=== PATIENT | female | born 1980 | race American Indian/Alaskan Native ===

== ENCOUNTER 2017-07-11 10:52 | Inpatient (IN) | payer MEDICAID ==
[2017-07-11] MEDS ORDERED: ADRENALIN ONE (11:13)
[2017-07-11] MEDS ORDERED: BENADRYL ONE (11:14)
[2017-07-11] MEDS ORDERED: PEPCID IV ONE ×2 (11:14→11:16)
[2017-07-11] MEDS ORDERED: ATIVAN ONE (11:16)
[2017-07-11] MEDS ORDERED: ATIVAN IV ONE (11:17)
--- NOTE | 2017-07-11 11:23 | Emergency Department Report ---
HPI - General Chief Complaint: Allergic Reaction Time Seen by Provider: 07/11/17 11:16 - HPI HPI: Room 20 The patient is a 37-year-old female presenting with a chief complaint of facial swelling. The patient states she began developing shaking last night at approximately 19:00. Patient states at approximately 02:00 she noted swelling of her bottom lip and tongue swelling. The patient states she took a Benadryl at that time in an attempt to treat the swelling. The patient has a picture of her face prior to arrival and it was significantly more edematous than it is currently. Patient's swelling has decreased dramatically. The patient states she does not recall any new exposures/foods/medications. Patient states she's had similar episodes in the past with facial swelling the first time occurred after eating burt fish and the second episode occurred after taking a medication for her knee pain that started with the letter "M." patient complains of some shortness of breath and fatigue currently. The patient states she normally drinks approximately 1 pint of alcohol daily and she last consumed 4 days ago Location: Face, see above Duration: [See above] Quality: Swelling Severity: moderate Modifying factors: [see above] Context: [see above] Mode of transportation: [not driving] ED Past Medical Hx - Past Medical History Previous Medical History?: No - Surgical History Additional Surgical History: C/S - Family History Family history: no significant - Social History Smoking Status: Current Every Day Smoker (1/4 pack per day) Substance Use Type: None (denies illicit drug use), Alcohol (consumes approximately 1 pint of liquor daily. Last consumption 4 days ago) ED Review of Systems ROS: Stated complaint: ALLERGIC REACTION Other details as noted in HPI Constitutional: malaise ENT: other (lip swelling) Respiratory: shortness of breath Cardiovascular: other (tachycardia) Neurological: other (tremulousness) Physical Exam - Physical Exam Vital Signs: Vital Signs 07/11/17 10:58 Temperature 98.5 F Pulse Rate 140 H Respiratory 18 Rate Blood Pressure 116/82 O2 Sat by Pulse 99 Oximetry Physical Exam: GENERAL: The patient is well-developed well-nourished female sitting on stretcher with swelling of the lips and lower face and mild tremulousness. [] HEENT: Normocephalic. Atraumatic. Extraocular motions are intact. Patient has moist mucous membranes. Uvula midline. No edema appreciated NECK: Supple. No meningitic signs are noted. There is no adenopathy noted. There is no stridor CHEST/LUNGS: Clear to auscultation. There is no respiratory distress noted. HEART/CARDIOVASCULAR: Regular. There is tachycardia. There is no gallop rub or murmur. ABDOMEN: Abdomen is soft, nontender. Patient has normal bowel sounds. There is no abdominal distention. SKIN: There is no rash. There is no diaphoresis. NEURO: The patient is awake, alert, and oriented. The patient is cooperative. The patient has no focal neurologic deficits. The patient has normal speech. Cranial nerves II through XII grossly intact. There is no drift. There is diffuse tremulousness MUSCULOSKELETAL: There is no evidence of acute injury. ED Course Vital Signs 07/11/17 10:58 Temperature 98.5 F Pulse Rate 140 H Respiratory 18 Rate Blood Pressure 116/82 O2 Sat by Pulse 99 Oximetry ED Medical Decision Making - Lab Data Result diagrams: 07/11/17 11:29 07/11/17 11:29 Laboratory Tests 07/11/17 07/11/17 07/11/17 11:29 11:29 11:29 WBC 8.4 RBC 3.69 Hgb 12.5 Hct 36.8 MCV 100 H MCH 34 H MCHC 34 RDW 22.3 H Plt Count 285 Lymph % (Auto) 16.4 [place] % (Auto) 5.5 Eos % (Auto) 0.2 Baso % (Auto) 0.5 Lymph # 1.4 [place] # 0.5 Eos # 0.0 Baso # 0.0 Seg Neutrophils % 77.4 H Seg Neutrophils # 6.5 PT 12.1 L INR 0.86 L APTT 23.5 L Sodium 136 L Potassium 3.6 Chloride 95.9 L Carbon Dioxide 16 L Anion Gap 28 BUN 12 Creatinine 0.5 L Estimated GFR > 60 BUN/Creatinine Ratio 24 Glucose 104 H Calcium 9.4 Magnesium 2.00 Total Bilirubin 0.50 AST 73 H ALT 21 Alkaline Phosphatase 86 Total Protein 7.9 Albumin 4.1 Albumin/Globulin Ratio 1.1 HCG, Qual 07/11/17 11:29 WBC RBC Hgb Hct MCV MCH MCHC RDW Plt Count Lymph % (Auto) [place] % (Auto) Eos % (Auto) Baso % (Auto) Lymph # [place] # Eos # Baso # Seg Neutrophils % Seg Neutrophils # PT INR APTT Sodium Potassium Chloride Carbon Dioxide Anion Gap BUN Creatinine Estimated GFR BUN/Creatinine Ratio Glucose Calcium Magnesium Total Bilirubin AST ALT Alkaline Phosphatase Total Protein Albumin Albumin/Globulin Ratio HCG, Qual Negative - EKG Data -: EKG Interpreted by Me EKG shows normal: sinus rhythm Rate: tachycardia (121 bpm) - EKG Data When compared to previous EKG there are: previous EKG unavailable Interpretation: other (no ischemic changes seen) - Radiology Data Radiology results: image reviewed (chest x-ray, lateral soft tissue neck x-ray) interpreted by me: Chest x-ray-no focal fractures, no pneumothorax Lateral soft tissue neck x-ray-no evidence of epiglottitis or prevertebral swelling - Differential Diagnosis angioedema, alcohol withdrawal Critical care attestation.: If time is entered above; I have spent that time in minutes in the direct care of this critically ill patient, excluding procedure time. ED Disposition Clinical Impression: Alcohol withdrawal, Angioedema Disposition: OP ADMIT IP TO THIS HOSP Is pt being admited?: Yes Does the pt Need Aspirin: No Condition: Fair Time of Disposition: 12:39 (Hospitalist notified (Dr Anglin))
[2017-07-11] MEDS ORDERED: VITAMIN B-1 100 MG, FOLVITE 1 MG, INFUVITE 10 ML, MAGNESIUM SULFATE 2 GM in NACL 0.9% 1... IV ONE (11:30)
[2017-07-11 11:54] LABS: Basophils % (Auto) 0.5 % (0.0-1.8); Eosinophils % (Auto) 0.2 % (0.0-4.3); Hematocrit 36.8 % (30.3-42.9); Hemoglobin 12.5 gm/dl (10.1-14.3); Mean Corpuscular HGB Conc 34 % (30-34); Mean Corpuscular Hemoglobin 34 pg (28-32); Mean Corpuscular Volume 100 fl (79-97); Platelet Count 285 K/mm3 (140-440); Red Blood Count 3.69 M/mm3 (3.65-5.03); White Blood Count 8.4 K/mm3 (4.5-11.0)
[2017-07-11 11:57] LABS: Red Cell Distribution Width 22.3 % (13.2-15.2)
[2017-07-11 12:04] LABS: INR 0.86 (0.87-1.13)
[2017-07-11 12:05] LABS: Partial Thromboplastin Time 23.5 Sec. (24.2-36.6)
[2017-07-11 12:10] LABS: Alanine Aminotransferase 21 units/L (7-56); Albumin 4.1 g/dL (3.9-5); Albumin/Globulin Ratio 1.1 %; Alkaline Phosphatase 86 units/L (35-129); Anion Gap 28 mmol/L; BUN/Creatinine Ratio 24; Blood Urea Nitrogen 12 mg/dL (7-17); Calcium 9.4 mg/dL (8.4-10.2); Carbon Dioxide 16 mmol/L (22-30); Chloride 95.9 mmol/L (98-107); Glucose 104 mg/dL (65-100); Potassium 3.6 mmol/L (3.6-5.0); Sodium 136 mmol/L (137-145); Total Protein 7.9 g/dL (6.3-8.2)
--- NOTE | 2017-07-11 13:05 | XRay Report ---
AP CHEST: HISTORY: Allergic reaction, shortness of breath AP view of the chest demonstrates a normal mediastinal and cardiac contour with clear lungs and normal bony and soft tissue structures. IMPRESSION: Unremarkable AP chest.
--- NOTE | 2017-07-11 13:05 | XRay Report ---
AP AND LATERAL SOFT TISSUES OF THE NECK: History: Allergic reaction, shortness of breath. The contour of the upper airway appears within normal limits. The epiglottis is not enlarged. No prevertebral soft tissue swelling is apparent. No mass density or foreign body is evident. IMPRESSION: Normal study.
--- NOTE | 2017-07-11 13:34 | History and Physical Report ---
History of Present Illness Chief complaint: My face is swollen History of present illness: 37 YO Female with Nicotine Dependence, ETOH Abuse presents to ED for evaluation. Pt states that she has experienced facial swelling. Pt states that symptoms began around 0200hrs. Pt bottom lip and tongue began swelling and she took a benadryl tablet in an attempt to treat the swelling. Pt symptoms have gotten progressively worse over the ensuing 6 hours. Pt denies drooling, fever, chills, CP, palpitations, NVD, syncope, or recent skin rash. Pt acknowledges similar symptoms that occurred after eating burt fish, and taking medication for knee pain. The patient also acknowledges daily ETOH use. Pt states that her last drink was 4 days ago. Pt denies hallucinations, tremors, shaking chills, or confusion. Pt seen and evaluated in ED, and treated with steroid therapy for angioedema, as well as CIWA protocol. Past History Past Surgical History: No surgical history, Other (reviewed) Social history: single, smoking, alcohol abuse Family history: no significant family history (reviewed) Medications and Allergies Allergies Allergy/AdvReac Type Severity Reaction Status Date / Time morphine Allergy Itching Verified 07/11/17 10:58 tramadol Allergy Itching Verified 07/11/17 10:58 Home Medications Medication Instructions Recorded Confirmed Last Taken Type No Known Home Medications [No 07/11/17 07/11/17 Unknown History Reported Home Medications] Active Meds: Active Medications Thiamine HCl 100 mg/ Folic Acid 1 mg/ Multivitamins/Minerals 10 ml/ Magnesium Sulfate 2 gm/ Sodium Chloride 1,015.2 mls @ 250 mls/hr IV ONCE.ED ONE Stop: 07/11/17 15:33 Last Admin: 07/11/17 12:45 Dose: 250 mls/hr Review of Systems Constitutional: no weight loss, no weight gain, no fever, no chills Ears, nose, mouth and throat: swelling in mouth, no ear pain, no ear discharge, no tinnitis, no decreased hearing, no nose pain, no nasal congestion, no nasal discharge Breasts: no change in shape, no swelling, no mass Cardiovascular: no chest pain, no orthopnea, no palpitations, no rapid/ irregular heart beat, no edema, no syncope Respiratory: no cough, no cough with sputum, no excessive sputum, no hemoptysis , no shortness of breath Gastrointestinal: no abdominal pain, no nausea, no vomiting, no diarrhea, no constipation Genitourinary Female: no pelvic pain, no flank pain, no menorrhagia, no dysuria Rectal: no pain, no incontinence, no bleeding Musculoskeletal: no neck stiffness, no neck pain, no shooting arm pain, no arm numbness/tingling, no low back pain, no shooting leg pain Integumentary: no rash, no pruritis, no redness, no sores, no wounds, no jaundice Neurological: no head injury, no transient paralysis, no paralysis, no weakness , no parathesias, no numbness, no tingling, no seizures Psychiatric: no anxiety, no memory loss, no sleep disturbances, no insomnia, no hypersomnia, no change in appetite Endocrine: no cold intolerance, no heat intolerance, no polyphagia, no excessive thirst, no polydipsia, no polyuria, no nocturia Hematologic/Lymphatic: no easy bruising, no easy bleeding Allergic/Immunologic: no urticaria, no allergic rhinitis, no wheezing Exam - Constitutional Vitals: Temp Pulse Resp BP Pulse Ox 98.5 F 117 H 16 143/99 100 07/11/17 10:58 07/11/17 11:18 07/11/17 11:18 07/11/17 11:18 07/11/17 11:18 General appearance: Present: mild distress, disheveled - EENT Eyes: Present: PERRL ENT: hearing intact, clear oral mucosa - Neck Neck: Present: supple, normal ROM - Respiratory Respiratory effort: normal Respiratory: bilateral: CTA - Cardiovascular Heart Sounds: Present: S1 & S2. Absent: rub, click - Extremities Extremities: pulses symmetrical, No edema Peripheral Pulses: within normal limits - Abdominal General gastrointestinal: Present: soft, non-tender, non-distended, normal bowel sounds Female genitourinary: Present: normal - Integumentary Integumentary: Absent: clear, warm, dry - Musculoskeletal Musculoskeletal: generalized weakness - Psychiatric Psychiatric: appropriate mood/affect, cooperative - Neurologic Neurologic: CNII-XII intact Results - Labs CBC & Chem 7: 07/11/17 11:29 07/11/17 11:29 Labs: Abnormal lab results 07/11/17 07/11/17 07/11/17 Range/Units 11:29 11:29 11:29 MCV 100 H (79-97) fl MCH 34 H (28-32) pg RDW 22.3 H (13.2-15.2) % Seg Neutrophils % 77.4 H (40.0-70.0) % PT 12.1 L (12.2-14.9) Sec. INR 0.86 L (0.87-1.13) APTT 23.5 L (24.2-36.6) Sec. Sodium 136 L (137-145) mmol/L Chloride 95.9 L (98-107) mmol/L Carbon Dioxide 16 L (22-30) mmol/L Creatinine 0.5 L (0.7-1.2) mg/dL Glucose 104 H (65-100) mg/dL AST 73 H (5-40) units/L Assessment and Plan - Patient Problems (1) Angioedema Current Visit: Yes Status: Acute Plan to address problem: Steroid therapy, serial physical exam, supportive care. (2) Alcohol withdrawal Current Visit: Yes Status: Acute Plan to address problem: CIWA procotol, banana bag, supportive care, ETOH withdrawl protocol. (3) Nicotine dependence Current Visit: Yes Status: Acute Plan to address problem: Pt declines quit date at this time. (4) DVT prophylaxis Current Visit: Yes Status: Acute
[2017-07-11] MEDS ORDERED: MILK OF MAGNESIA PO PRN (13:36)
[2017-07-11] MEDS ORDERED: ZOFRAN IV PRN (13:36)
[2017-07-11] MEDS ORDERED: PROVENTIL IH PRN (13:36)
[2017-07-11] MEDS ORDERED: DULCOLAX PR PRN (13:36)
[2017-07-11] MEDS ORDERED: TYLENOL PO PRN (13:36)
[2017-07-11] MEDS: ATIVAN IV PRN (22:58)
[2017-07-12] MEDS: ATIVAN IV PRN (10:36)
[2017-07-12] MEDS ORDERED: BENADRYL PO PRN (15:05)
[2017-07-12 16:41] VITALS: BP 116/73
--- NOTE | 2017-07-12 19:36 | Progress Note ---
Assessment and Plan Assessment and plan: Angioedema Unknown etiology Continue IV corticosteroids, symptomatic treatment Alcohol abuse/withdrawal Status post banana bag Start thiamine/folate po Ciwa protocol Nicotine dependence Cessation encouraged Nicotine patch if needed Check UDS DVT prophylaxis History Interval history: no new issues Hospitalist Physical - Constitutional Vitals: Temp Pulse Resp BP Pulse Ox 99.3 F 110 H 20 116/73 98 07/12/17 15:14 07/12/17 15:14 07/12/17 15:14 07/12/17 15:14 07/12/17 15:14 General appearance: Present: no acute distress, disheveled - EENT Eyes: Present: PERRL, EOM intact. Absent: scleral icterus, conjunctival injection - Neck Neck: Present: supple, normal ROM. Absent: masses or JVD - Respiratory Respiratory effort: normal Respiratory: bilateral: CTA, negative: rhonchi, wheezing - Cardiovascular Rhythm: other (tachycardic) Heart Sounds: Present: S1 & S2. Absent: systolic murmur - Extremities Extremities: no ischemia - Abdominal General gastrointestinal: soft, non-tender, non-distended, normal bowel sounds - Psychiatric Psychiatric: cooperative - Neurologic Neurologic: CNII-XII intact, no focal deficits Results - Labs CBC & Chem 7: 07/11/17 11:29 07/11/17 11:29 Labs: Laboratory Last Values WBC 8.4 K/mm3 (4.5-11.0) 07/11/17 11:29 RBC 3.69 M/mm3 (3.65-5.03) 07/11/17 11:29 Hgb 12.5 gm/dl (10.1-14.3) 07/11/17 11:29 Hct 36.8 % (30.3-42.9) 07/11/17 11:29 MCV 100 fl (79-97) H 07/11/17 11:29 MCH 34 pg (28-32) H 07/11/17 11:29 MCHC 34 % (30-34) 07/11/17 11:29 RDW 22.3 % (13.2-15.2) H 07/11/17 11:29 Plt Count 285 K/mm3 (140-440) 07/11/17 11:29 Lymph % (Auto) 16.4 % (13.4-35.0) 07/11/17 11:29 [place] % (Auto) 5.5 % (0.0-7.3) 07/11/17 11:29 Eos % (Auto) 0.2 % (0.0-4.3) 07/11/17 11:29 Baso % (Auto) 0.5 % (0.0-1.8) 07/11/17 11:29 Lymph # 1.4 K/mm3 (1.2-5.4) 07/11/17 11:29 [place] # 0.5 K/mm3 (0.0-0.8) 07/11/17 11:29 Eos # 0.0 K/mm3 (0.0-0.4) 07/11/17 11:29 Baso # 0.0 K/mm3 (0.0-0.1) 07/11/17 11:29 Seg Neutrophils % 77.4 % (40.0-70.0) H 07/11/17 11:29 Seg Neutrophils # 6.5 K/mm3 (1.8-7.7) 07/11/17 11:29 PT 12.1 Sec. (12.2-14.9) L 07/11/17 11:29 INR 0.86 (0.87-1.13) L 07/11/17 11:29 APTT 23.5 Sec. (24.2-36.6) L 07/11/17 11:29 Sodium 136 mmol/L (137-145) L 07/11/17 11:29 Potassium 3.6 mmol/L (3.6-5.0) 07/11/17 11:29 Chloride 95.9 mmol/L (98-107) L 07/11/17 11:29 Carbon Dioxide 16 mmol/L (22-30) L 07/11/17 11:29 Anion Gap 28 mmol/L 07/11/17 11:29 BUN 12 mg/dL (7-17) 07/11/17 11:29 Creatinine 0.5 mg/dL (0.7-1.2) L 07/11/17 11:29 Estimated GFR > 60 ml/min 07/11/17 11:29 BUN/Creatinine Ratio 24 % 07/11/17 11:29 Glucose 104 mg/dL (65-100) H 07/11/17 11:29 Calcium 9.4 mg/dL (8.4-10.2) 07/11/17 11:29 Magnesium 2.00 mg/dL (1.7-2.3) 07/11/17 11:29 Total Bilirubin 0.50 mg/dL (0.1-1.2) 07/11/17 11:29 AST 73 units/L (5-40) H 07/11/17 11:29 ALT 21 units/L (7-56) 07/11/17 11:29 Alkaline Phosphatase 86 units/L (35-129) 07/11/17 11:29 Total Protein 7.9 g/dL (6.3-8.2) 07/11/17 11:29 Albumin 4.1 g/dL (3.9-5) 07/11/17 11:29 Albumin/Globulin Ratio 1.1 % 07/11/17 11:29 HCG, Qual Negative (Negative) 07/11/17 11:29 Plasma/Serum Alcohol < 0.01 gm% (0-0.07) 07/11/17 13:48
--- NOTE | 2017-07-13 07:36 | Discharge Summary ---
Providers - Providers Date of Admission: 07/11/17 13:36 Date of discharge: 07/12/17 Attending physician: GEORGE LOPEZ Primary care physician: IRIS DEL TORO MD Hospitalization Condition: Fair Hospital course: Left AMA on 07/12/17 evening. Disposition: DC-07 LEFT AGAINST MED ADVICE Core Measure Documentation - Palliative Care Palliative Care/ Comfort Measures: Not Applicable - Core Measures Any of the following diagnoses?: none Exam - Constitutional Vitals: Temp Pulse Resp BP Pulse Ox 99.3 F 110 H 20 116/73 98 07/12/17 15:14 07/12/17 15:14 07/12/17 15:14 07/12/17 15:14 07/12/17 15:14 Plan Follow up with: IRIS DEL TORO MD [Primary Care Provider] - 7 Days
[2017-07-13] MEDS ORDERED: Renal Caps PO SCH (10:00)
[2017-07-13] MEDS ORDERED: VITAMIN B-1 PO SCH (10:00)
== END 2017-07-12 19:55 | disposition left against medical advice (07) | DRG 916 ==
LOC: ED 10:52 → 3A 13:36
PROVIDERS: ADMIT Internal Medicine; ATTEND Internal Medicine
DX: T78.3XXA Angioneurotic edema, initial encounter (principal); F17.200 Nicotine dependence, unspecified, uncomplicated; F10.239 Alcohol dependence with withdrawal, unspecified; Z88.6 Allergy status to analgesic agent; Z88.5 Allergy status to narcotic agent
CPT/HCPCS: 36415; 70360; 71010; 80053; 80320; 83735; 84703; 85025; 85610; 85730; 93005; 93010; 96374; 96375; 99285; G0480; J0171; J1200; J2060; J2920; J2930; J3411; J3475; J7030